=== PATIENT | female | born 1980 | race Two or more races ===

== ENCOUNTER 2016-05-25 15:45 | Emergency (ER) | payer MEDICAID ==
[~2016-05-25] VITALS: Ht 154.9 cm; Wt 82.1 kg
[~2016-05-25 15:45] MED LIST: BACL20TA PO; CLON1TAB3; HYDROCODONE/ACETAMINOPHEN; LAMO200T34 PO; SERT-138 PO; TOPI100T68 PO
[2016-05-25 16:30] LABS: Urine Bilirubin Negative (Negative); Urine Blood Negative /uL (Negative); Urine Color Yellow (Yellow); Urine Glucose Normal (Normal); Urine Ketone Negative (Negative); Urine Nitrite Negative (Negative); Urine RBC 1 /hpf (0 - 4); Urine Squamous Epithelial Cell MOD /hpf (<5); Urine Urobilinogen Normal (Negative)
[2016-05-25 16:31] LABS: Basophils # (auto) 0 uL; Basophils % (auto) 0.1 % (0.0-2.0); Eosinophils # (auto) 0.2 uL; Eosinophils % (auto) 2.2 % (0.0-7.0); Hemoglobin 13.5 g/dL (12.2-16.2); Lymphocytes # (auto) 1.6 uL; Lymphocytes % (auto) 17.4 % (10.0-50.0); Mean Corpuscular Hemoglobin 30.1 pg (28.0-32.0); Mean Corpuscular Hgb Conc. 32.9 g/dL (32.0-36.0); Mean Corpuscular Volume 91.7 fL (80.0-100.0); Mean Platelet Volume 9.8 fL (7.4-10.4); Monocytes # (auto) 0.6 uL; Neutrophils # (auto) 6.6 uL; Neutrophils % (auto) 73.3 % (37.0-80.0); Platelet Count (auto) 244 10^3/uL (140-450); Red Cell Distribution Width 13.9 % (11.6-16.0)
[2016-05-25 16:41] LABS: Albumin 3.7 g/dL (3.4-5.0); BUN/Creatinine Ratio 13.6; Calcium 8.4 mg/dL (8.5-10.1); Potassium 4.5 mmol/L (3.5-5.1)
[2016-05-25 16:43] LABS: Bilirubin, Total 0.2 mg/dL (0.2-1.0); Total Protein 7.3 g/dL (6.4-8.2)
[2016-05-25 18:35] VITALS: BP 113/80
[2016-05-25] MEDS ORDERED: ACETAMINOPHEN 500 MG TAB PO ONE ×2 (21:35→21:45)
== END 2016-05-25 22:25 | disposition home or self-care (01) ==
LOC: ER 15:48
DX: R10.2 Pelvic and perineal pain (principal); N39.0 Urinary tract infection, site not specified; F17.210 Nicotine dependence, cigarettes, uncomplicated; J45.909 Unspecified asthma, uncomplicated
CPT/HCPCS: 36415; 76856; 80053; 81001; 84702; 85025